=== PATIENT | male | born 1990 | race Caucasian/White ===

== ENCOUNTER 2017-03-15 12:48 | Emergency (ER) | payer OTHER ==
[~2017-03-15] VITALS: Ht 180.3 cm; Wt 76.3 kg
--- NOTE | 2017-03-15 13:55 | REP ---
Clinical: Trauma. Technique: AP, lateral, bilateral oblique views left hand. Findings: Swelling and possible small subcutaneous foreign body material overlies the distal aspect of the fifth digit. No acute fracture or dislocation is appreciated. The remainder of the hand is unremarkable. Impression: Subtle soft tissue injury involving the fifth digit. No acute fracture or dislocation appreciated. Signed by Elbert Noel MD 03/15/2017 01:46 P
[2017-03-15 14:31] VITALS: BP 114/73
== END 2017-03-15 14:32 | disposition home or self-care (01) ==
LOC: M ED 12:48
DX: S67.197A Crushing injury of left little finger, initial encounter (principal); W23.1XXA Caught, crushed, jammed, or pinched between stationary objects, initial encounter; Y93.A1 Activity, exercise machines primarily for cardiorespiratory conditioning; Y92.39 Other specified sports and athletic area as the place of occurrence of the external cause; Y99.9 Unspecified external cause status